=== PATIENT | female | born 1990 | race Caucasian/White ===

== ENCOUNTER 2022-08-02 07:12 | Inpatient (IN) | payer OTHER ==
[2022-08-02] MEDS ORDERED: Nalbuphine 10 MG/0.5 ML Syringe IVPUSH PRN (07:15)
[2022-08-02] MEDS ORDERED: Oxytocin/Lactated Ringers 10 UNIT/1,000 ML BAG IV SCH ×2 (07:15→08:15)
[2022-08-02] MEDS ORDERED: Ondansetron 4 MG/2 ML SDV IVPUSH PRN (07:15)
[2022-08-02] MEDS ORDERED: Calcium Carbonate 500 MG Tab.Chew PO PRN (07:15)
[2022-08-02] MEDS: Lactated Ringers 1,000 ML IV SCH ×3 (08:21→13:07)
[2022-08-02] MEDS ORDERED: diphenhydrAMINE 50 MG/ML SDV IVPUSH PRN (12:53)
[2022-08-02] MEDS ORDERED: ePHEDrine 50 MG/ML SDV IVPUSH PRN (12:53)
[2022-08-02] MEDS ORDERED: fentaNYL 100 MCG/2 ML SDV EPIDUR PRN (12:53)
[2022-08-02] MEDS ORDERED: Ropivacaine 100 ML ONE ×2 (12:58→12:59)
[2022-08-02] MEDS ORDERED: Ropivacaine 200 MG in Premix Bag 1 BAG EPIDUR SCH (13:00)
[2022-08-02] MEDS ORDERED: Witch Hazel Medicated Pads 40/Jar TOP PRN (16:39)
[2022-08-02] MEDS ORDERED: Benzocaine/Menthol 20%-0.5% Spray 78 GM Cannister TOP PRN (16:39)
[2022-08-02] MEDS: Ibuprofen 600 MG Tab PO PRN (17:48)
[2022-08-02] MEDS: Acetaminophen 325 MG Tab PO PRN (20:41)
[2022-08-02] MEDS: Docusate Sodium 100 MG Cap PO PRN (20:42)
[2022-08-03] MEDS: Ibuprofen 600 MG Tab PO PRN ×3 (03:30→15:24)
[2022-08-03] MEDS ORDERED: Measles, Mumps & Rubella Vaccine 0.5 ML SDV SUBCUT ONE (06:00)
[2022-08-03] MEDS: Acetaminophen 325 MG Tab PO PRN (06:15)
[2022-08-03] MEDS ORDERED: Prenatal Multivitamin with Calcium/Folic Acid/Iron Tab PO SCH (09:00)
[2022-08-03] MEDS: Docusate Sodium 100 MG Cap PO PRN (09:13)
== END 2022-08-03 16:40 | disposition home or self-care (01) | DRG 807 ==
LOC: JD.OB 07:12 → OBSVTOIN 15:43 → JD.OB 15:44
PROVIDERS: ADMIT Obstetrics & Gynecology; ATTEND Obstetrics & Gynecology
PROC: 10E0XZZ Delivery of Products of Conception, External Approach (ICD-10-PCS; principal; 2022-08-02)
PROC: 10907ZC Drainage of Amniotic Fluid, Therapeutic from Products of Conception, Via Natural or Artificial Opening (ICD-10-PCS; 2022-08-02)
PROC: 3E0R3BZ Introduction of Anesthetic Agent into Spinal Canal, Percutaneous Approach (ICD-10-PCS; 2022-08-02)
PROC: 00HU33Z Insertion of Infusion Device into Spinal Canal, Percutaneous Approach (ICD-10-PCS; 2022-08-02)
PROC: 3E0134Z Introduction of Serum, Toxoid and Vaccine into Subcutaneous Tissue, Percutaneous Approach (ICD-10-PCS; 2022-08-03)
DX: O34.211 Maternal care for low transverse scar from previous cesarean delivery (principal); Z37.0 Single live birth; Z3A.39 39 weeks gestation of pregnancy; Z23 Encounter for immunization
CPT/HCPCS: 36415; 51702; 59025; 59409; 85025; 86592; 86850; 86900; 86901; 90471; 90707; A9270-GY; J2590; J3010; J7120

== ENCOUNTER 2023-07-04 07:28 | Emergency (ER) | payer OTHER ==
[2023-07-04] MEDS ORDERED: Ketorolac 0.5% Ophth Soln 5 ML Bottle EYERT ONE (08:37)
[2023-07-04] MEDS ORDERED: Acetaminophen/oxyCODONE 325-5 MG Tab PO ONE (08:42)
[2023-07-04] MEDS ORDERED: Ciprofloxacin 0.3% Ophth Soln 5 ML Bottle EYERT ONE ×2 (08:45)
== END 2023-07-04 09:00 | disposition home or self-care (01) ==
LOC: JD.ED 07:28
DX: S05.01XA Injury of conjunctiva and corneal abrasion without foreign body, right eye, initial encounter (principal); Z79.899 Other long term (current) drug therapy; X58.XXXA Exposure to other specified factors, initial encounter
CPT/HCPCS: 99283; A9270